=== PATIENT | male | born 1985 ===

== ENCOUNTER 2018-02-06 06:26 | Emergency (ER) | payer OTHER ==
[2018-02-06 06:26] VITALS: BMI 29.8
[2018-02-06 06:51] VITALS: TEMP 97.8
--- NOTE | 2018-02-06 07:15 | ED PDOC ---
HPI: General Adult Time Seen by Provider: 02/06/18 07:09 Chief Complaint (Nursing): Medical Clearance Chief Complaint (Provider): Medical Clearance History Per: Patient, Other (Police) History/Exam Limitations: no limitations Additional Complaint(s): 32 years old male with history of diabetes and CVA brought to ER by police for medical and psychiatric evaluation prior to incarceration. Patient reports he feels anxious and denies suicidal or homicidal ideation. PMD: non provided Past Medical History Reviewed: Historical Data, Nursing Documentation, Vital Signs Vital Signs: Last Vital Signs Temp 97.8 F 02/06/18 06:41 Pulse 111 H 02/06/18 06:41 Resp 18 02/06/18 06:41 BP 154/73 H 02/06/18 06:41 Pulse Ox 100 02/06/18 06:41 - Medical History PMH: Anxiety, Asthma, CVA, Diabetes - Surgical History Surgical History: Tonsillectomy - Family History Family History: States: Unknown Family Hx - Social History Current smoker - smoking cessation education provided: Yes Alcohol: None Drugs: Denies - Immunization History Hx Tetanus Toxoid Vaccination: No Hx Influenza Vaccination: No Hx Pneumococcal Vaccination: No - Home Medications Home Medications: Ambulatory Orders Medication Instructions Recorded ALPRAZolam [Xanax] 1 mg PO HS PRN 11/23/16 - Allergies Allergies/Adverse Reactions: Allergies Allergy/AdvReac Type Severity Reaction Status Date / Time No Known Allergies Allergy Verified 02/06/18 06:41 Review of Systems ROS Statement: Except As Marked, All Systems Reviewed And Found Negative Psych: Positive for: Anxiety. Negative for: Suicidal ideation (or homicidal) Physical Exam - Reviewed Nursing Documentation Reviewed: Yes Vital Signs Reviewed: Yes - Physical Exam Appears: Positive for: Non-toxic, No Acute Distress Head Exam: Positive for: ATRAUMATIC Skin: Positive for: Normal Color, Warm, Dry Eye Exam: Positive for: Normal appearance, EOMI, PERRL Neck: Positive for: Normal, Painless ROM, Supple Cardiovascular/Chest: Positive for: Regular Rate, Rhythm. Negative for: Murmur Respiratory: Positive for: Normal Breath Sounds. Negative for: Respiratory Distress Gastrointestinal/Abdominal: Positive for: Normal Exam, Soft. Negative for: Tenderness Back: Positive for: Normal Inspection. Negative for: L CVA Tenderness, R CVA Tenderness Extremity: Positive for: Normal ROM. Negative for: Tenderness, Swelling Neurologic/Psych: Positive for: Alert, Oriented (x3) - ECG O2 Sat by Pulse Oximetry: 100 (RA) Pulse Ox Interpretation: Normal Medical Decision Making Medical Decision Making: Time: 711 --Crisis evaluation Scribe Attestation: Documented by Diane Manriquez, acting as a scribe for Srini Lopez MD. Provider Scribe Attestation: All medical record entries made by the Scribe were at my direction and personally dictated by me. I have reviewed the chart and agree that the record accurately reflects my personal performance of the history, physical exam, medical decision making, and the department course for this patient. I have also personally directed, reviewed, and agree with the discharge instructions and disposition. Disposition - Clinical Impression Clinical Impression: Anxiety - Patient ED Disposition Is Patient to be Admitted: No Counseled Patient/Family Regarding: Diagnosis, Need For Followup - Disposition Disposition: Discharged/Transfer to Law Enforcement Disposition Time: 07:33 Condition: FAIR Additional Instructions: Medically and psychiatrically stable for incarceration Instructions: General (DC), Anxiety, Adult (DC) Forms: [employer] (Urdu)
[2018-02-06 07:49] VITALS: BP 125/85; PULSE 103; RESP 17; O2SAT 99
== END 2018-02-06 07:42 ==
LOC: H.ER 06:26
DX: F41.9 Anxiety disorder, unspecified (principal); E11.9 Type 2 diabetes mellitus without complications; F17.200 Nicotine dependence, unspecified, uncomplicated; J45.909 Unspecified asthma, uncomplicated; Z86.73 Personal history of transient ischemic attack (TIA), and cerebral infarction without residual deficits